=== PATIENT | female | born 1985 | race Caucasian/White ===

== ENCOUNTER 2017-02-24 21:02 | Inpatient (IN) | payer BC ==
[~2017-02-24] VITALS: Ht 160 cm; Wt 93.7 kg
[2017-02-24 21:26] VITALS: Ht 160 cm; Wt 93.7 kg
[2017-02-24 21:27] VITALS: BP 108/68; PULSE 80; RESP 17
[2017-02-25] MEDS ORDERED: LACTATED RINGER'S 1,000 ML IV SCH (00:09)
[2017-02-25] MEDS ORDERED: CARBOPROST 250 MCG INJ IM PRN ×2 (00:30→06:00)
[2017-02-25] MEDS ORDERED: BUTORPHANOL 2 MG INJ IV PRN (00:30)
[2017-02-25] MEDS ORDERED: METHYLERGONOVINE 0.2 MG INJ IM PRN ×2 (00:30→06:00)
[2017-02-25] MEDS ORDERED: ACETAMINOPHEN/CODEINE #3 TAB PO PRN (00:30)
[2017-02-25] MEDS ORDERED: LACTATED RINGER'S 1,000 ML IV PRN (00:30)
[2017-02-25] MEDS ORDERED: OXYTOCIN 30 UNITS/LR 500 ML IV SCH ×2 (00:30)
[2017-02-25] MEDS ORDERED: OXYTOCIN 30 UNITS/LR 500 ML IV PRN ×2 (00:30→06:00)
[2017-02-25] MEDS ORDERED: MISOPROSTOL 200 MCG TAB PR PRN ×2 (00:30→06:00)
[2017-02-25] MEDS ORDERED: LIDOCAINE 1% (MPF) 30 ML INJ INJ PRN (00:30)
[2017-02-25] MEDS ORDERED: IBUPROFEN 600 MG TAB PO PRN (00:30)
[2017-02-25 01:29] LABS: ADD SCAN DIFF NO
[2017-02-25 01:31] LABS: BASOPHILS % 0.3 % (0.0-2.0); EOSINOPHILS # 0.1 10^3/ul (0.0-0.5); HEMATOCRIT 34.2 % (37.0-47.0); HEMOGLOBIN 11.4 g/dl (12.0-16.0); LYMPHOCYTES # 2.2 10^3/ul (0.8-2.9); LYMPHOCYTES % 21.1 % (15.0-51.0); MEAN CORPUSCULAR HEMOGLOBIN 27.5 pg (29.0-33.0); MEAN CORPUSCULAR HGB CONC 33.3 g/dl (32.0-37.0); MEAN CORPUSCULAR VOLUME 82.6 fl (82.0-101.0); MEAN PLATELET VOLUME 10.6 fl (7.4-10.4); MONOCYTE # 0.7 10^3/ul (0.3-0.9); MONOCYTES % 6.5 % (0.0-11.0); NEUTROPHIL # 7.3 10^3/ul (1.6-7.5); NEUTROPHILS % 70.5 % (39.0-77.0); PLATELET COUNT 263 10^3/UL (140-415); RED BLOOD COUNT 4.14 10^6/ul (4.20-5.40); RED CELL DISTRIBUTION WIDTH 15.3 % (11.5-14.5); WHITE BLOOD COUNT 10.3 10^3/ul (4.8-10.8)
--- NOTE | 2017-02-25 02:29 | HP ---
Date/Time of Note Date/Time of Note DATE: 02/25/17 TIME: 02:24 OB - History Hx of Present Free Text/Dictation 31 Year-old with SIUP at 39 3/7 weeks presents with a chief complaint of uterine contractions. She has been receiving her care with Dr Hernandez. She states good movement. She denies nausea, vomiting, shortness of breath, chest pain, and abdominal pain between contractions, headache, visual changes, vaginal bleeding or LOF. Chief Complaint: uterine contractions Estimated Due Date: Feb 28, 2017 : 4 Para: 3 Spontaneous : 0 Therapeutic : 0 Care: Good Care Ultrasounds: Normal mid trimester US Obstetrical Complications: None Medical Complications: None Past Family/Social History * Past Medical, Surgical, Family and Obstetric Histories reviewed from chart. Blood Type: O+ Rubella: immune RPR/VDRL: Negative GBS Status: Negative HBsAG: Negative OB Admission Exam Vital Signs Vital Signs Vital Signs Date Time Temp Pulse Resp B/P Pulse Ox O2 Delivery O2 Flow Rate FiO2 02/24/17 21:27 98.0 80 17 108/68 Room Air Physical Exam HEENT: WNL Heart: Rhythm Normal Abdomen: WNL Extremities: Normal Reflexes: Normal Cervical Dilatation: 4cm Effacement: 75% Station: 0 Membranes: Intact Heart Rate: 140's Accelerations: Accelerations Present Decelerations: No Decelerations Varibility: Moderate Contractions on Admission: < 5 Minutes Apart Intensity: Moderate Last 72 hours Lab Results CBC & BMP 02/25/17 01:09 OB Assessment/Plan Other plan: 31 Year-old with SIUP at 39 3/7 weeks in active labor. - FHR: No sign of metabolic acidosis- Category I - Continious EFM, toco - CBC, blood type and screen - Analgesia options with R/B/A discussed in detail with patient - Epidural per patient request - Please see the orders - O+/Rubella: Immune/GBS negative Admission, procedures, expectations, risks and possible complications have been discussed in detail with the patient. Risk of vaginal delivery including but not limited to bleeding, infection, cervical laceration, placental retention, injury to fetus, blood transfusion, blood transfusion related infection, risk of anesthesia, adhesion, cervical laceration, episiotomy/laceration, possible delivery with risk of bleeding, infection, injury to other organs ( bowel, bladder, ureter, vessels, nerves), injury to fetus, blood transfusion, blood transfusion related infection, risk of anesthesia, scar and hernia formation, needs for future , removal of uterus or any other indicated surgery discussed with the patient. She expressed understanding and repeats the risks. All of her questions were answered; all appropriate consents will be signed. PHYSICIAN'S VERIFICATION OF INFORMED CONSENT: The patient was counseled regarding the procedure, its indications, risks, potential complications and alternatives and any questions were answered. Consent was obtained. PLANNED PROCEDURE/TREATMENT: Vaginal delivery with possible vacuum/forceps delivery episiotomy, repair of laceration possible delivery PHYSICIAN'S VERIFICATION OF INFORMED CONSENT FOR BLOOD TRANSFUSION: There is a reasonable possibility that blood transfusion will be necessary as a result of the patient's procedure. I have discussed the following with the patient/patient's legal employee's representative: An explanation of the benefits and risks of the transfusion of blood or blood products and the possible alternatives. Al questions have been answered to the patient's/patients legal representatives satisfaction. INFORMED CONSENT: The patient has been informed of: - The nature of the proposed care, treatment, services, medic- Potential benefits, risks or side effects, including potential problems related to recuperation. - The likelihood of achieving care treatment and service goals. - Reasonable alternatives to the proposed care, treatment and service. - The relevant risks, benefits and side effects related to alternatives, including the possible results of not receiving care, treatment and services. - When indicated, any limitations on the confidentiality of information learned from or about the patient. - If appropriate, the risks, benefits and alternatives of the drugs to be used for sedation/analgesia including moderate sedation. - If appropriate, patient has been provided information on the risks, benefits and alternatives to the transfusion of blood and/or blood products. TIEN PASTRANA Feb 25, 2017 02:29
--- NOTE | 2017-02-25 02:33 | LDN ---
Date/Time of Note Date/Time of Note DATE: 02/25/17 TIME: 02:29 Delivery Summary 31 Year-old with SIUP at 39 3/7 weeks delivered a female over first degree lac at ant of labia minora bilateral and post vaginal wall : 9/9 Weight: 7 lbs 9 oz Time of delivery: 01:34 Placenta Delivered: Spontaneously Meconium: none Episiotomy: No Laceration repair: with 3/0 vicryl Anesthesia type: Local Estimated blood loss: 150 Sponge & Needle done & correct: Yes All needle counts correct: Yes Any foreign bodies felt in the: No (vagina) Problems: Infant Delivery Information Sex Sex: female Apgars 1 Minute: 9 5 Minute: 9 Suctioning Nose & mouth suctioned at jeremías: Yes Umbilical Cord Umbilical cord with: 3 Vessels Cord presentations: no nuchal cord Cord Blood was obtained: Yes Mother & Baby Disposition Disposition Mom & Baby to Maternity; Good: Yes Mom transferred to: Med/Surg Baby to NICU: No TIEN PASTRANA Feb 25, 2017 02:33
[2017-02-25 03:53] VITALS: BP 106/54; PULSE 71; RESP 18
[2017-02-25] MEDS ORDERED: LACTATED RINGER'S 1,000 ML IV* SCH (05:33)
[2017-02-25] MEDS ORDERED: DEXTROSE 5%-LR 1,000 ML IV SCH (05:33)
[2017-02-25] MEDS: IBUPROFEN 600 MG TAB PO SCH ×3 (06:00→17:40)
[2017-02-25] MEDS ORDERED: BENZOCAINE 20% 56 ML SPRAY TOP PRN (06:00)
[2017-02-25] MEDS ORDERED: DIPHENHYDRAMINE 50 MG INJ IV PRN (06:00)
[2017-02-25] MEDS ORDERED: ONDANSETRON 4 MG INJ IV PRN (06:00)
[2017-02-25] MEDS ORDERED: DIBUCAINE 1% 30 GM OINT PR PRN (06:00)
[2017-02-25] MEDS ORDERED: ZOLPIDEM 5 MG TAB PO PRN (06:00)
[2017-02-25] MEDS ORDERED: LANOLIN 7 GM TUBE TOP PRN (06:00)
[2017-02-25] MEDS ORDERED: OXYCODONE/ASPIRIN (4.88/325) TAB PO PRN (06:00)
[2017-02-25] MEDS ORDERED: ACETAMINOPHEN 325 MG TAB PO PRN (06:00)
[2017-02-25] MEDS ORDERED: WITCH HAZEL/GLYCERIN PAD PR PRN (06:00)
[2017-02-25] MEDS ORDERED: SENNA/DOCUSATE NA (8.6MG/50MG) TAB PO PRN (06:00)
[2017-02-25 07:50] VITALS: BP 102/61; PULSE 63; RESP 16
[2017-02-25 16:00] VITALS: BP 103/62; PULSE 76; RESP 16
[2017-02-25 20:00] VITALS: BP 112/71; PULSE 86; RESP 18
[2017-02-26] MEDS: IBUPROFEN 600 MG TAB PO SCH ×4 (00:43→17:49)
[2017-02-26 04:57] VITALS: BP 98/56; PULSE 68; RESP 18
[2017-02-26 08:04] LABS: ADD SCAN DIFF NO
[2017-02-26 08:09] LABS: BASOPHILS % 0.3 % (0.0-2.0); EOSINOPHILS # 0.1 10^3/ul (0.0-0.5); EOSINOPHILS % 1.6 % (0.0-7.0); HEMOGLOBIN 9.5 g/dl (12.0-16.0); LYMPHOCYTES # 2.3 10^3/ul (0.8-2.9); LYMPHOCYTES % 26.1 % (15.0-51.0); MEAN CORPUSCULAR HEMOGLOBIN 26.8 pg (29.0-33.0); MEAN CORPUSCULAR HGB CONC 31.7 g/dl (32.0-37.0); MEAN CORPUSCULAR VOLUME 84.5 fl (82.0-101.0); MEAN PLATELET VOLUME 10.5 fl (7.4-10.4); MONOCYTE # 0.7 10^3/ul (0.3-0.9); MONOCYTES % 8.3 % (0.0-11.0); NEUTROPHIL # 5.6 10^3/ul (1.6-7.5); NEUTROPHILS % 63.1 % (39.0-77.0); PLATELET COUNT 212 10^3/UL (140-415); RED BLOOD COUNT 3.55 10^6/ul (4.20-5.40); RED CELL DISTRIBUTION WIDTH 15.9 % (11.5-14.5); WHITE BLOOD COUNT 8.8 10^3/ul (4.8-10.8)
[2017-02-26 08:20] VITALS: BP 99/57; PULSE 68; RESP 19
--- NOTE | 2017-02-26 10:45 | PN ---
Date/Time of Note Date/Time of Note DATE: 02/26/17 TIME: 10:41 OB Subjective Subjective Subjective no c/o sned for tubal sterilization but advise to have after 6weeks check uo when her physician back OB Objective Objective Objective vss afebrile fundus firm lochia min calf mono gor tenderness OB Assessment/Plan Other Assessment: stable normal vaginal delivery Other plan: d/s home in am MEI SANCHEZ MD Feb 26, 2017 10:45
[2017-02-26 16:59] VITALS: BP 96/52; PULSE 67; RESP 19
[2017-02-26 20:05] VITALS: BP 98/52; PULSE 70; RESP 18
[2017-02-27] MEDS: IBUPROFEN 600 MG TAB PO SCH ×4 (00:26→18:06)
[2017-02-27 04:30] VITALS: BP 115/60; PULSE 69
[2017-02-27 08:00] VITALS: BP 106/55; PULSE 76; RESP 18
[2017-02-27] MEDS ORDERED: MEASLES,MUMPS,RUBELLA VACCINE INJ SC* ONE (09:00)
[2017-02-27] MEDS ORDERED: DIPHTH/TET/ACEL PERTUSS (ADULT) 0.5 ML VIAL IM* ONE (09:00)
[2017-02-27 16:00] VITALS: BP 103/54; PULSE 72; RESP 19
--- NOTE | 2017-02-27 17:13 | PD.PPDC ---
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
--- NOTE | 2017-02-27 17:15 | DS ---
Date/Time of Note Date/Time of Note DATE: 02/27/17 TIME: 17:14 Obstetrical Discharge Record Final Diagnosis Final Diagnosis: Term delivered Vaginal Delivery Obstetrical Delivery: Spontaneous, Laceration, Repaired Complications Augmentation: No Induction: No Condition on Discharge Physical Assessment Last Vitals: vss afebrile Voiding: Yes Bowel Movement: Yes Breast: Soft, non-tender Fundus: Firm Calf Tenderness: No Patient Condition: Stable MEI SANCHEZ MD Feb 27, 2017 17:15
== END 2017-02-27 18:40 | disposition home or self-care (01) | DRG 775 ==
LOC: OBT 21:02 → L-D 21:03 → OBT 02-25 00:10 → PP1 02-25 03:34
PROVIDERS: ADMIT Specialist; ATTEND Specialist
PROC: 10E0XZZ Delivery of Products of Conception, External Approach (ICD-10-PCS; principal; 2017-02-25)
PROC: 0UQGXZZ Repair Vagina, External Approach (ICD-10-PCS; 2017-02-25)
DX: O71.4 Obstetric high vaginal laceration alone (principal); Z37.0 Single live birth; Z3A.39 39 weeks gestation of pregnancy
CPT/HCPCS: 85025; 86592; 86900; 86901; 90715; 99464; G0463; J2590; J7120; J7121

== ENCOUNTER 2017-04-10 05:34 | Day surgery (SDC) | payer BC ==
[2017-04-09 15:09] VITALS: BMI 31.9
--- NOTE | 2017-04-09 17:24 | PREOPHP ---
DATE OF ADMISSION: 04/10/2017 REASON FOR ADMISSION: She is to be admitted tomorrow for laparoscopic bilateral tubal ligation unde r general anesthesia. CHIEF COMPLAINT: Multiparity. HISTORY OF PRESENT ILLNESS: This is a 31-year-old female, 5, para 4, with one a therapeutic who has requested sterilization on the basis of multiparity. Different methods of c ontrol were discussed in the office. Alternatives, benefits, the risks and possible complications o f this procedure were discussed in detail as well as 1% failure rate of the same. She was allowed t o ask questions and all her questions were answered to her satisfaction, and she signed the appropri ate surgical informed consents. PAST MEDICAL HISTORY: Entirely unremarkable. There is no history of cardiovascular disease, hypert ension, diabetes, heart disease, liver disease, thyroid disease, or neurological problems. She has never had any surgeries and takes no medications on a regular basis. ALLERGIES: SHE HAS NO KNOWN ALLERGIES. OBSTETRICAL HISTORY: The patient has had 5 pregnancies, 4 which ended up in normal vaginal deliveri es. FAMILY HISTORY: Noncontributory. REVIEW OF SYSTEMS: A 12-point review of systems is noncontributory. PHYSICAL EXAMINATION: GENERAL: Well-developed and nourished, in no distress. Height is 5 feet 3 inches and weight is 180 pounds. BMI 32. VITAL SIGNS: Showed temperature to be 98, blood pressure 98/52, the respirations 16 per minute, the pulse is 64 per minute regular. HEENT: Within normal limits. Pupils are PERRLA. NECK: Supple. Thyroid is nonpalpable. There is no lymphadenopathy. BREASTS: Show no masses or lumps. LUNGS: Clear to percussion and auscultation. HEART: Normal sinus rhythm without a murmur. ABDOMEN: Soft without organomegalies or hernias. PELVIC: Normal external genitalia. The cervix is normal without lesions. Bimanual exam: The uter us small, firm, in the midline. There are no adnexal masses present. EXTREMITIES: Within normal limits. NEUROLOGIC: Also normal. IMPRESSION: Multiparity. The patient desires sterilization, is to be admitted for laparoscopic richard ateral tubal ligation under general anesthesia, possible laparotomy if necessary. Dictated By: FRANCISCA RUBIO/YIN Conf#: [id number] [facility] [place]#: [id number]
[2017-04-10] VITALS (11 sets, daily range): BP systolic 94–114; BP diastolic 48–66; PULSE 56–82; RESP 14–18; Ht 160 cm; Wt 82.6 kg
[~2017-04-10] VITALS: Ht 160 cm; Wt 82.6 kg
[2017-04-10] MEDS ORDERED: BUPIVACAINE 0.5%/EPI (SDV) 30 ML INJ ONE (06:44)
[2017-04-10] MEDS ORDERED: MIDAZOLAM 1 MG/ML 2 ML INJ ONE (07:38)
[2017-04-10] MEDS ORDERED: PROPOFOL 20 ML ONE (07:38)
[2017-04-10] MEDS ORDERED: LIDOCAINE 2% (SDV) 5 ML INJ ONE (07:38)
[2017-04-10] MEDS ORDERED: FENTAnyl 50 MCG/ML VIAL ONE (07:38)
[2017-04-10] MEDS ORDERED: SUCCINYLCHOLINE CHLORIDE 100 MG/5 ML SYG IV ONE (07:38)
[2017-04-10] MEDS ORDERED: ONDANSETRON 4 MG INJ ONE (07:49)
[2017-04-10] MEDS ORDERED: FAMOTIDINE 20 MG INJ ONE (07:49)
[2017-04-10] MEDS ORDERED: DEXAMETHASONE 4 MG/ML 1 ML INJ ONE (07:49)
[2017-04-10] MEDS ORDERED: PHENYLephrine (100 MCG/ML) 5ML SYG ONE (07:49)
[2017-04-10] MEDS ORDERED: EPHEDrine SULFATE 50 MG/5 ML SYG ONE (07:56)
[2017-04-10] MEDS ORDERED: CEFAZOLIN 1 GM INJ ONE (08:08)
[2017-04-10] MEDS ORDERED: KETOROLAC 30 MG INJ ONE (08:20)
[2017-04-10] MEDS ORDERED: NEOSTIGMINE 3 MG/3 ML SYRINGE ONE (08:28)
[2017-04-10] MEDS ORDERED: GLYCOPYRROLATE 1 MG INJ ONE (08:28)
[2017-04-10] MEDS ORDERED: HYDROmorphONE (0.2 MG/ML) 10ML SYG IV PRN (08:30)
[2017-04-10] MEDS ORDERED: ACETAMINOPHEN 325 MG TAB PO PRN (08:30)
[2017-04-10] MEDS ORDERED: MEPERIDINE 25 MG INJ IV PRN (08:30)
[2017-04-10] MEDS ORDERED: ONDANSETRON 4 MG INJ IV PRN ×2 (08:30)
[2017-04-10] MEDS ORDERED: OXYCODONE/ACETAMINOPHEN (5/325) TAB PO PRN ×3 (08:30)
[2017-04-10] MEDS ORDERED: PROCHLORPERAZINE 10 MG INJ IV PRN (08:30)
[2017-04-10] MEDS ORDERED: LACTATED RINGER'S 1,000 ML IV SCH (08:30)
[2017-04-10] MEDS ORDERED: IBUPROFEN 600 MG TAB PO PRN (08:30)
[2017-04-10] MEDS ORDERED: DIPHENHYDRAMINE 50 MG INJ IV PRN (08:30)
[2017-04-10] MEDS ORDERED: morphine 2 MG INJ IV PRN (08:30)
[2017-04-10] MEDS ORDERED: BUPIVACAINE 0.5%/EPI (SDV) 30 ML INJ INJ ONE (08:32)
--- NOTE | 2017-04-10 08:34 | PD.PPDC ---
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
[2017-04-10] MEDS: FENTAnyl 50 MCG/ML VIAL IV PRN ×2 (08:51→09:05)
--- NOTE | 2017-04-10 09:54 | OPR ---
DATE OF OPERATION: 04/10/2017 PREOPERATIVE DIAGNOSES: Multiparity. POSTOPERATIVE DIAGNOSIS: Multiparity. PROCEDURE: Laparoscopic bilateral tubal ligation. SURGEON: Francisca Hernandez MD ANESTHESIA: General, Dr. Santana. ESTIMATED BLOOD LOSS: Negligible. SPECIMENS: None. COMPLICATIONS: None. PROCEDURE AND FINDINGS: With the patient under general anesthesia, laid on the table in the dorsal lithotomy position. She had a López catheter draining her bladder. Her abdomen and upper thighs we re prepped with ChloraPrep and the perineum and vagina were prepped with Betadine, and after 3 minut es she was draped in the usual sterile fashion for this procedure. A small 5-mm incision was done a t the level of the umbilicus. Through this incision and while we were tenting up the anterior abdom inal wall, the Veress needle was inserted. Once the tip of the needle was ascertained to be intrape ritoneal by the hanging drop of saline technique, it was then connected to the CO2 insufflator. Goo d pneumoperitoneum was obtained. The needle was removed and a 5-mm trocar was passed in. Through t his port the 5-mm laparoscope with the endocamera was inserted. The patient was placed in Trendelen clary position. A second port was installed under direct vision, another 5-mm trocar in the hypogast sergei area, without any problems. Through this port a Kleppinger clamp with the gyrus device at 35 wa tts of current was inserted in the abdomen. The right tube was identified first and then picked up in its mid portion and burned through and through for a centimeter and a half. The same was done on the contralateral side. There were no bleeders or complications. Pictures were taken for documenta tion. All the instruments were then removed from the patient's abdomen. The in incisions were infi ltrated with 0.5% Marcaine with epinephrine, a total of 20 mL. The incisions were closed with 4-0 M onocryl. Band-Aids were applied. The patient was taken to the recovery room, with all vital signs stable. EBL was negligible. Needle, sponge and instrument counts at the end of the procedure were correct twice. Dictated By: FRANCISCA RUBIO/YIN Conf#: [id number] DID#: [id number]
== END 2017-04-10 10:00 | disposition home or self-care (01) ==
LOC: SDS 05:34
PROVIDERS: ATTEND Specialist
DX: Z30.2 Encounter for sterilization (principal)
CPT/HCPCS: 58670; 86850; 86900; 86901; J0690; J1100; J1885; J2175; J2250; J2370; J2405; J3010; J7999; Z7512; Z7610; J1170; J2710